=== PATIENT | male | born 1995 | race African-American/Black ===

== ENCOUNTER 2024-06-11 17:22 | Emergency (ER) | payer OTHER ==
--- OUTSIDE RECORDS SUMMARY | 2024-06-11 17:25 | XMS REPORT | Continuity of Care Document ---
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 He has since been lost to f/u. CTA during ED evaluation for anemia last week due to rectal bleeding consistent with mass at rectal cuff/IPAA anastomotic region. Today, reports feeling ok, no fatigue, no abdominal pain, no nausea/vomiting, some appetite changes but no weight loss. Reports bleeding started last week, was significant and bright red which filled the toilet. Denies rectal pain. Denies prior episodes. Colonoscopy: 2018 EGD: 2012 Family Hx CRC: no Family Hx polyps: no PMH: Diabetes:no Cardiac functional status: active Blood thinners: no Allergies Manas has No Known Allergies. Medications Current Outpatient Medications Medication Instructions acetaminophen-codeine (TYLENOL-CODEINE #3) 300-30 mg tablet 1 tablet, Oral, Q4HPRN ferrous sulfate 325 mg, Oral, TID MEALS Family History: Family History Problem Relation Age of Onset Diabetes Maternal Grandfather Diabetes Maternal Grandmother Cancer Maternal Uncle stomach? Social History: Smoking: no Review of Systems Per HPI Physical Exam Vitals: 08/14/23 1304 BP: 116/62 Pulse: 89 Temp: 36.9 ?C (98.4 ?F) SpO2: 100% Physical Exam Vitals signs reviewed. Constitutional: Appearance: Normal appearance. Cardiovascular: Rate and Rhythm: Normal rate. Pulmonary: Effort: Pulmonary effort is normal. Abdominal: General: Abdomen is flat. S/NT/ND Musculoskeletal: Normal range of motion. Skin:General: Skin is warm and dry. Imaging CT ANGIOGRAM ABDOMEN/PELVIS Narrative: EXAM: CT ANGIOGRAM ABDOMEN/PELVIS HISTORY: 27 years-old Male; GI bleed, lower . TECHNIQUE: Multiphasic CT Angiogram was performed from the level of the lung bases through the proximal thighs before and after the uncomplicated administration of intravenous contrast. Coronal and sagittal reconstructions and MIP reformats were obtained. COMPARISON: None FINDINGS: Lung bases: There is no evidence of mass lesion pneumonia or pneumothorax Liver: There is no evidence of masses. There is huge and 80 to perfusion in the liver. There is no evidence of gallstones. Spleen: No evidence of masses. Kidneys: No evidence of masses or hydronephrosis. Adrenals: No evidence of masses. Pancreas: There is no evidence of masses. Vasculature: There is no evidence of aortic dissection or aneurysm formation. Bowel: Postsurgical changes are noted in the region of the rectum, there is soft tissue mass may be related to neoplasm, intussusception cannot be excluded further evaluation with direct visualization is recommended. This is best seen on series #8 image 111/164. There is no evidence of GI bleeding. Pelvis: There is thickening of the urinary bladder wall, cystitis cannot be excluded. Impression: IMPRESSION: No evidence of GI bleeding. Mass lesion in the region of the rectum and the surgical anastomosis, differential includes tumor/neoplasm, intussusception cannot be excluded direct visualization is recommended Pathology: 2012: ILEUM, COLON AND RECTUM, TOTAL COLECTOMY: - INNUMERABLE TUBULAR ADENOMAS - BENIGN COLONIC MUCOSA WITH SUBMUCOSAL LYMPHOID HYPERPLASIA AND TRANSMURAL CHRONIC INFLAMMATION - NO MALIGNANCY IDENTIFIED - BENIGN ILEAL MUCOSA WITH SUBMUCOSAL LYMPHOID HYPERPLASIA - 111 BENIGN REACTIVE LYMPH NODES - MARGINS ARE FREE OF DYSPLASIA 2018: A. ILEUM, PROXIMAL J POUCH, BIOPSY: - REACTIVE INTESTINAL MUCOSA WITH MIXED INFLAMMATION AND GRANULATION TISSUE CONSISTENT WITH POUCHITIS - NO MALIGNANCY IDENTIFIED B. ILEUM, MID POUCH, BIOPSY: - REACTIVE SMALL INTESTINAL MUCOSA WITH MIXED INFLAMMATION - NO MALIGNANCY IDENTIFIED C. SMALL INTESTINE, DISTAL J POUCH, POLYP EXCISION: - COLONIC POLYP WITH DILATED GLANDS WITH GRANULATION TISSUE - NO ADENOMATOUS CHANGES IDENTIFIED - SEE COMMENT Assessment/Plan Michelle Noel is a 27 year old male who presented for rectal bleeding and rectal cuff mass like lesion on imaging with a significant h/o FAP s/p proctocolectomy with IPAA and post op cuffitis. Plan: - schedule urgent flex sig for next Sunday- fleet recommended - RTC post evaluation to determine surgical needs - will plug in with GI for establishment of frequent EGD/colonoscopy surveillance for FAP I spent 55 minutes of time, independent of resident or medical student time spent during the entirety of this appointment, dedicated to: PreCharting (eg, review of tests, notes, etc.), Performing a medically appropriate examination and/or evaluation, Counseling and educating the patient/family/caregiver, Ordering medications, tests, or procedures, and Documenting clinical information in the electronic or other health record. Eva Merino MD 08/14/2023 11:14 AM Colon and Rectal Surgery [facility]
[2024-06-11 18:34] LABS: SARS-CoV-2 Antigen CONTROL BLUE LINE VIS/BG OK; SARS-CoV-2 Antigen Rapid Res Negative (Negative)
--- NOTE | 2024-06-11 18:50 | ER ---
Nurse's Notes [facility] Name: Mane Oneal Age: 28 yrs Sex: Male : 1995 Arrival Date: 06/11/2024 Time: 17:22 Bed DX4 Private MD: Diagnosis: Acute upper respiratory infection, unspecified Presentation: 06/11 17:49 Chief complaint: Patient states: Headache, chills, cough onset sunday. Coronavirus cm10 screen: Client denies travel out of the [place] in the last 14 days. Ebola Screen: Patient denies travel to an Ebola-affected area in the 21 days before illness onset. Initial Sepsis Screen: Does the patient meet any 2 criteria? HR > 90 bpm. Does the patient have a suspected source of infection? No. Patient's initial sepsis screen is negative. Risk Assessment: Do you want to hurt yourself or someone else? Patient reports no desire to harm self or others. Onset of symptoms was June 11, 2024. 17:49 Method Of Arrival: Ambulatory cm10 17:49 Acuity: ADWOA 4 cm10 Triage Assessment: 17:51 General: Appears in no apparent distress. comfortable, Behavior is calm, cooperative. cm10 Neuro: No deficits noted. Level of Consciousness is awake, alert, obeys commands, Oriented to person, place, time, situation, Appropriate for age. Respiratory: No deficits noted. Reports cough that is Airway is patent Respiratory effort is even, unlabored, Respiratory pattern is regular, symmetrical. Historical: - Allergies: 17:50 No Known Allergies; cm10 - PMHx: 17:50 Colon Cancer; cm10 - PSHx: 17:50 Colectomy; cm10 - Immunization history:: Adult Immunizations up to date. - Infectious Disease History:: Denies. - Social history:: Smoking status: Patient denies any tobacco usage or history of. Vital Signs: 17:49 BP 126 / 83; Pulse 96; Resp 15; Temp 98.4(TE); Pulse Ox 100% ; Weight 70.31 kg; Height cm10 5 ft. 9 in. ; Pain 6/10; 17:49 Body Mass Index 22.89 (70.31 kg, 175.26 cm) cm10 17:49 Pain Scale: Adult cm10 ED Course: 17:24 Patient arrived in ED. jj6 17:25 Yuli Benitez FNP-C [facility] kb 17:25 Thierno Nayak MD is Attending Physician. kb 17:50 Triage completed. cm10 17:51 Arm band placed on right wrist. Patient placed in waiting room. cm10 17:53 Strep Sent. cm10 17:53 SARS RAPID Sent. cm10 17:53 Flu Sent. cm10 17:54 COVID swab sent to lab. Flu and/or RSV swab sent to lab. Strep swab sent to lab. cm10 19:03 Cathryn Luciano, RN is Primary Nurse. iw Administered Medications: No medications were administered Outcome: 18:50 Discharge ordered by . kb 19:03 Discharged to home ambulatory, iw 19:03 Condition: good 19:03 Discharge instructions given to patient, Instructed on discharge instructions, follow up and referral plans. Demonstrated understanding of instructions, follow-up care, 19:03 Patient left the ED. iw Signatures: Yuli Benitez FNP-C FNP-Cathryn Patel, RN RN iw Margo Carrion jj6 Tiffany Black RN RN cm10
--- NOTE | 2024-06-11 18:50 | EDPHYS ---
Physician Documentation [facility] Name: Mane Oneal Age: 28 yrs Sex: Male : 1995 Arrival Date: 06/11/2024 Time: 17:22 Bed DX4 Private MD: ED Physician Thierno Nayak HPI: 06/11 17:48 This 28 yrs old Black Male presents to ER via Unassigned with complaints of Flu kb Symptoms. 17:48 Pt is a 28 year old male who presents for headache, cough, chills, fever, bodyaches, kb sore throat that started 3 days ago. Denies vomiting. . Historical: - Allergies: 17:50 No Known Allergies; cm10 - PMHx: 17:50 Colon Cancer; cm10 - PSHx: 17:50 Colectomy; cm10 - Immunization history:: Adult Immunizations up to date. - Infectious Disease History:: Denies. - Social history:: Smoking status: Patient denies any tobacco usage or history of. ROS: 17:48 Constitutional: As per HPI kb Exam: 17:48 Constitutional: This is a well developed, well nourished patient who is awake, alert, kb and in no acute distress. Head/Face: Normocephalic, atraumatic. ENT: Moist Mucous membranes Cardiovascular: Regular rate Respiratory: Respirations even and unlabored. No increased work of breathing. Talking in full sentences Skin: Warm, dry with normal turgor. Normal color. MS/ Extremity: Pulses equal, no cyanosis. Neurovascular intact. Full, normal range of motion. Neuro: Awake and alert, GCS 15, oriented to person, place, time, and situation. Vital Signs: 17:49 BP 126 / 83; Pulse 96; Resp 15; Temp 98.4(TE); Pulse Ox 100% ; Weight 70.31 kg; Height cm10 5 ft. 9 in. ; Pain 6/10; 17:49 Body Mass Index 22.89 (70.31 kg, 175.26 cm) cm10 17:49 Pain Scale: Adult cm10 MDM: 17:25 Medical Screening Exam initiated kb 17:50 Differential diagnosis: flu, covid, strep, uri. Data reviewed: vital signs, nurses kb notes. 18:49 Test considered but Not performed: X-ray: CXR considered but lungs clear bilaterally. kb Historians other than the Patient: Spouse/Significant Other: significant other. Counseling: I had a detailed discussion with the patient and/or guardian regarding the historical points, exam findings, and any diagnostic results supporting the discharge/admit diagnosis, lab results, the need for outpatient follow up, a family practitioner, to return to the emergency department if symptoms worsen or persist or if there are any questions or concerns that arise at home. 06/11 17:49 Order name: Flu; Complete Time: 18:38 cm10 06/11 17:49 Order name: SARS RAPID; Complete Time: 18:38 cm10 06/11 17:49 Order name: Strep cm10 06/11 18:37 Order name: Throat Culture EDMS Administered Medications: No medications were administered Disposition Summary: 06/11/24 18:50 Discharge Ordered Notes: Location: Home kb Condition: Stable kb Diagnosis - Acute upper respiratory infection, unspecified kb Followup: kb - With: Emergency Department - When: As needed - Reason: Worsening of condition Followup: kb - With: Private Physician - When: 2 - 3 days - Reason: Recheck today's complaints, Continuance of care, Re-evaluation by your physician Discharge Instructions: - Discharge Summary Sheet kb - Upper Respiratory Infection, Adult, [id number] kb - Viral Respiratory Infection, [id number] kb Forms: - Work release form kb - Medication Reconciliation Form kb - Antibiotic Education kb - Prescription Opioid Use kb - Patient Portal Instructions kb - Leadership Thank You Letter kb Addendum: 06/13/2024 23:22 Co-signature as Attending Physician, Thierno Nayak MD I agree with the assessment and c low plan of care. Signatures: Dispatcher [employer] Yuli Prasad, AVICULTURIST-C AVICULTURIST-Thierno Becerra MD MD cha Martinez, Clarissa, RN RN cm10
[2024-06-11 19:14] VITALS: BP 126/83; TEMP 98.4; O2SAT 100
== END 2024-06-11 19:03 | disposition home or self-care (01) ==
LOC: ER 17:22
DX: J06.9 Acute upper respiratory infection, unspecified (principal); Z11.52 Encounter for screening for COVID-19
CPT/HCPCS: 36415; 87070; 87081; 87804; 87811; 99283

== ENCOUNTER 2024-06-12 18:50 | Emergency (ER) | payer OTHER ==
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
[2024-06-12] MEDS ORDERED: IBUPROFEN 200 MG TAB PO ONE (19:22)
[2024-06-12 19:46] LABS: SARS-CoV-2 Antigen CONTROL BLUE LINE VIS/BG OK; SARS-CoV-2 Antigen Rapid Res Negative (Negative)
--- NOTE | 2024-06-12 20:09 | RAD REPORT ---
EXAMINATION: TWO VIEW CHEST XR CLINICAL INDICATION: Male, 28 years old. [facility] MAIN Cough;Fever Bed Name: 29 TECHNIQUE: 2 view radiographs of the chest were performed. COMPARISON: No prior exam. FINDINGS: The lungs are well inflated and clear. No pneumothorax or sizable effusion. The heart is normal in si ze. Mediastinal contours are unremarkable. IMPRESSION: No acute or significant abnormalities.
--- NOTE | 2024-06-12 20:24 | ER ---
Nurse's Notes [facility] Name: Mane Oneal Age: 28 yrs Sex: Male : 1995 Arrival Date: 06/12/2024 Time: 18:50 Bed IW6 Private MD: Diagnosis: Influenza due to identified novel influenza A virus Presentation: 06/12 19:10 Chief complaint: Patient states: seen here yesterday for cough, congestion, malaise, me1 fever (temp 107 at home). Feels worse today. Coronavirus screen: Vaccine status: Patient reports being unvaccinated. Ebola Screen: No symptoms or risks identified at this time. Initial Sepsis Screen: Does the patient meet any 2 criteria? No. Patient's initial sepsis screen is negative. Does the patient have a suspected source of infection?. Risk Assessment: Do you want to hurt yourself or someone else? Patient reports no desire to harm self or others. Onset of symptoms was June 11, 2024. 19:10 Method Of Arrival: Ambulatory [facility] 19:10 Acuity: ADWOA 4 me1 Triage Assessment: 20:50 General: Appears ill, Behavior is calm, cooperative, appropriate for age. me1 Historical: - Allergies: 19:14 No Known Allergies; me1 - PMHx: 19:14 colon cancer; me1 - PSHx: 19:14 Colectomy; me1 - Immunization history:: Adult Immunizations up to date. - Infectious Disease History:: Denies. - Social history:: Smoking status: Patient denies any tobacco usage or history of. Screenin:45 [facility] ED Fall Risk Assessment (Adult) History of falling in the last 3 months, me1 including since admission No falls in past 3 months (0 pts) Confusion or Disorientation No (0 pts) Intoxicated or Sedated No (0 pts) Impaired Gait No (0 pts) Mobility Assist Device Used No (0 pt) Altered Elimination No (0 pt) Score/Fall Risk Level 0 - 2 = Low Risk Maintained a safe environment, Provided non-skid footwear, Hourly rounding (assess needs \T\ fall precautionary measures) done. Abuse screen: Denies threats or abuse. Nutritional screening: No deficits noted. Tuberculosis screening: No symptoms or risk factors identified. Assessment: 20:45 General: Reports fever for 1-2 days, feeling ill for seen here yesterday for cough, me1 congestion, malaise, fever (temp 107 at home). Feels worse today. Pain: Complains of pain in generalized Pain does not radiate. Pain currently is 7 out of 10 on a pain scale. Quality of pain is described as aching, Pain began gradually, 2-3 days ago. Is continuous. Neuro: Level of Consciousness is awake, alert, obeys commands, Oriented to person, place, time, situation, Appropriate for age. Cardiovascular: Patient's skin is warm and dry. Respiratory: Reports cough that is persistent pain with cough Airway is patent Respiratory effort is even, unlabored, Respiratory pattern is regular, symmetrical. GI: No signs and/or symptoms were reported involving the gastrointestinal system. : No signs and/or symptoms were reported regarding the genitourinary system. EENT: Reports nasal congestion. Derm: Skin is intact, is healthy with good turgor, Skin is pink, warm \T\ dry. Musculoskeletal: No signs and/or symptoms reported regarding the musculoskeletal system. Vital Signs: 19:10 BP 134 / 77; Pulse 97; Resp 18; Temp 99.8; Pulse Ox 99% ; Weight 70.31 kg; Height 5 ft. me1 9 in. ; Pain 5/10; 20:49 BP 131 / 81; Pulse 91; Resp 17; Temp 98.3; Pulse Ox 99% ; me1 19:10 Body Mass Index 22.89 (70.31 kg, 175.26 cm) me1 19:10 Pain Scale: Adult me1 ED Course: 18:54 Patient arrived in ED. im 18:58 Jos Samayoa DO is Attending Physician. ms3 19:14 Triage completed. me1 19:14 Arm band placed on Patient placed in waiting room. me1 19:24 SARS RAPID Sent. me1 19:24 Flu Sent. me1 19:24 COVID swab sent to lab. Flu and/or RSV swab sent to lab. me1 19:53 Chest Pa And Lat (2 Views) XRAY In Process Unspecified. EDMS 20:23 Braulio Armstrong DO is Referral Physician. ms3 20:45 Debo Sutherland, RN is Primary Nurse. me1 20:45 Patient has correct armband on for positive identification. Provided Education on: POC. me1 Verbalized understanding.. 20:45 No provider procedures requiring assistance completed. Patient did not have IV access me1 during this emergency room visit. Administered Medications: 19:28 Drug: Ibuprofen PO 600 mg PO once Route: PO; me1 20:50 Follow up: Response: No adverse reaction; Temperature is decreased me1 Medication: 20:45 VIS not applicable for this client. me1 Outcome: 20:23 Discharge ordered by MD. ms3 20:50 Discharged to home ambulatory, me1 20:50 Condition: stable 20:50 Discharge instructions given to patient, family, Instructed on discharge instructions, follow up and referral plans. medication usage, Demonstrated understanding of instructions, follow-up care, medications, Prescriptions given X 2, 20:50 Patient left the ED. me1 Signatures: Dispatcher [employer] EDMS Jos Samayoa DO DO ms3 Paula Bess Michelle, RN RN me1 Corrections: (The following items were deleted from the chart) 20:45 19:10 Chief complaint: Patient states: seen here yesterday for cough, congestion, me1 malaise, fever (temp 107 at home). Feels worse today me1
--- NOTE | 2024-06-12 20:24 | EDPHYS ---
Physician Documentation [facility] Name: Mane Oneal Age: 28 yrs Sex: Male : 1995 Arrival Date: 06/12/2024 Time: 18:50 Bed IW6 Private MD: ED Physician Jos Samayoa HPI: 06/12 20:39 This 28 yrs old Black Male presents to ER via Ambulatory with complaints of Flu ms3 Symptoms. 20:39 28-year-old male with no past medical history presents emergency department for cough, ms3 runny nose, fever, chills. Patient states he was seen emergency department yesterday where COVID and flu testing were negative. Patient states he took his temperature at home and found it to be elevated. Patient has not taken Tylenol or ibuprofen today. Patient notes he has been staying hydrated.. Historical: - Allergies: 19:14 No Known Allergies; me1 - PMHx: 19:14 colon cancer; me1 - PSHx: 19:14 Colectomy; me1 - Immunization history:: Adult Immunizations up to date. - Infectious Disease History:: Denies. - Social history:: Smoking status: Patient denies any tobacco usage or history of. ROS: 20:39 Cardiovascular: Negative for chest pain, and palpitations. ms3 20:39 Abdomen/GI: Negative for abdominal pain, nausea, vomiting, diarrhea, and constipation, MS/Extremity: Negative for injury and deformity, Skin: Negative for injury, rash, and discoloration, 20:39 Constitutional: Positive for body aches, chills, fever, 20:39 Respiratory: Positive for cough, Exam: 20:39 Constitutional: This is a well developed, well nourished patient who is awake, alert, ms3 and in no acute distress. Cardiovascular: Regular rate and rhythm with a normal S1 and S2. No gallops, murmurs, or rubs. Normal PMI, no JVD. No pulse deficits. Respiratory: Lungs have equal breath sounds bilaterally, clear to auscultation and percussion. No rales, rhonchi or wheezes noted. No increased work of breathing, no retractions or nasal flaring. Abdomen/GI: Soft, non-tender, with normal bowel sounds. No distension or tympany. No guarding or rebound. No evidence of tenderness throughout. Skin: Warm, dry with normal turgor. Normal color with no rashes, no lesions, and no evidence of cellulitis. 20:39 ENT: Nose: nasal drainage, that is moderate, and is seen coming from both nares, that is clear, Vital Signs: 19:10 BP 134 / 77; Pulse 97; Resp 18; Temp 99.8; Pulse Ox 99% ; Weight 70.31 kg; Height 5 ft. me1 9 in. ; Pain 5/10; 20:49 BP 131 / 81; Pulse 91; Resp 17; Temp 98.3; Pulse Ox 99% ; me1 19:10 Body Mass Index 22.89 (70.31 kg, 175.26 cm) me1 19:10 Pain Scale: Adult me1 MDM: 19:18 Medical Screening Exam initiated ms3 20:39 Differential Diagnosis: Influenza Upper Respiratory Infection Viral Syndrome Pneumonia. ms3 Data reviewed: vital signs, nurses notes, lab test result(s), radiologic studies, and as a result, I will discharge patient. I considered the following discharge prescriptions or medication management in the emergency department See prescriptions. Counseling: I had a detailed discussion with the patient and/or guardian regarding the historical points, exam findings, and any diagnostic results supporting the discharge/admit diagnosis, lab results, radiology results, the need for outpatient follow up, to return to the emergency department if symptoms worsen or persist or if there are any questions or concerns that arise at home. Special discussion: I discussed with the patient/guardian in detail that at this point there is no indication for admission to the hospital. It is understood, however, that if the symptoms persist or worsen the patient needs to return immediately for re-evaluation. ED course: Discussed negative chest x-ray, positive flu a results with the patient. Patient to follow-up Dr. Armstrong in 2 to 3 days. Patient understands and agrees with plan. All questions were answered. Patient given prescription for ibuprofen and Tessalon Perles. Discussed with patient he is currently outside the 72-hour treatment window. On reevaluation patient is alert and oriented x 4, no apparent distress, nontoxic-appearing, speaking full sentences, ambulatory in the emergency department.. 06/12 19:18 Order name: Flu; Complete Time: 20:07 ms3 06/12 19:18 Order name: SARS RAPID; Complete Time: 20:07 ms3 06/12 19:18 Order name: Chest Pa And Lat (2 Views) XRAY; Complete Time: 20:12 ms3 Administered Medications: 19:28 Drug: Ibuprofen PO 600 mg PO once Route: PO; me1 20:50 Follow up: Response: No adverse reaction; Temperature is decreased me1 Disposition Summary: 06/12/24 20:23 Discharge Ordered Notes: Location: Home ms3 Condition: Stable ms3 Diagnosis - Influenza due to identified novel influenza A virus ms3 Followup: ms3 - With: Braulio Armstrong DO - When: 2 - 3 days - Reason: Recheck today's complaints Discharge Instructions: - Discharge Summary Sheet ms3 Forms: - Medication Reconciliation Form ms3 - Antibiotic Education ms3 - Prescription Opioid Use ms3 - Patient Portal Instructions ms3 - Leadership Thank You Letter ms3 Prescriptions: - Ibuprofen 600 mg Oral Tablet - take 1 tablet ORAL route every 6 hours As needed take with food; 30 tablet; ms3 Refills: 0, Product Selection Permitted - Tessalon Perles 100 mg Oral Capsule - take 1 capsule ORAL route every 8 hours As needed; 15 capsule; Refills: 0, ms3 Product Selection Permitted Signatures: Dispatcher [employer] Jos Armstrong DO DO ms3 Debo Sutherland, RN RN me1
[2024-06-12 20:59] VITALS: O2SAT 99
[2024-06-12 21:00] VITALS: BP 131/81; TEMP 98.3
== END 2024-06-12 20:50 | disposition home or self-care (01) ==
LOC: ER 18:50
DX: J10.1 Influenza due to other identified influenza virus with other respiratory manifestations (principal); Z11.52 Encounter for screening for COVID-19
CPT/HCPCS: 36415; 71046; 87804; 87811; 99284

== ENCOUNTER 2024-07-29 20:48 | Emergency (ER) | payer OTHER ==
--- OUTSIDE RECORDS SUMMARY | 2024-07-29 20:52 | XMS REPORT | Continuity of Care Document ---
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 following bariumadministered through the rectum demonstrate free flow of barium retrograde tothe ileostomy. No strictures or other mucosal abnormalities are present.[facility] BOWEL IMAGE--MECKEL' S DIVERTIC 2011-08 16:53:0 0 BOWEL IMAGE--MECKEL'S DIVERTIC*.*.*.*.*.*.*.*.*.*.*. *.*.*FINAL*.*.*.*.*.*.*.*.*.*. *.*.*.*.*INDICATION: Severe anemia, evaluate for Meckel's diverticulum. MECKEL'S SCAN: After administering [id number] 10 mCi intravenously, serial scintiphotos of the abdomen were obtained. ?These images demonstrate a small focus of increased uptake in the right lower abdomen that parallels the activity in the stomach. ?This activity does not increase over time as normally expected with a Meckel's but evaluation on the more delayed images is limited due to overlying intestinal activity. These findings raise the concern for a Meckel's diverticulum. IMPRESSION: Small area of increased uptake in the right lower quadrant, as described above, ?concerning for Meckel's diverticulum.[facility] History and Physical Notes Date/Time Note Provider [...] and Rectal Surgery Source Note - Eva Mernio MD - 08/14/2023 1:00 PM CDT COLORECTAL [...] 08/14/2023 11:14 AM Colon and Rectal Surgery [facility] - Health Notes Date/Time Note Provider Source 2023-11-19 16:01:07 Mr. Noel did not call me back and I was unable again to reach him by phone. Instead I will mail him a letter detailing the results and recommending a follow up visit. Copy of the letter is below: Dear Mr. Noel, I'm writing since we have not been able to reach you by phone with the results of your genetic testing. Please contact me at [phone] if you have any questions or concerns, to discuss the results further, or to schedule a follow up appointment. You may also contact our main genetics office at [phone] to schedule a follow up appointment. As you know, you were originally seen for genetic counseling due to your personal history of colon polyps. After our initial meeting, you underwent hereditary colorectal cancer and polyposis testing performed by [facility] which examined 20 genes associated with an increased risk for colorectal cancer and polyposis. 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 This result is consistent with Juvenile polyposis syndrome (JPS) and being at risk for hereditary hemorrhagic telangiectasia (HHT). This letter will summarize the results of your genetic testing and our recommendations. Genes are the set of instructions that tell all of the cells in our bodies what to do. A pathogenic variant, also referred to as a genetic mutation, is a change in a person's DNA that causes the gene to stop working. The SMAD4 gene works to protect us from developing cancer. Having a pathogenic variant in the SMAD4 gene prevents the gene from functioning the way it should, and is associated with juvenile polyposis syndrome (JPS) and hereditary hemorrhagic telangiectasia (HHT). A person with a SMAD4 is at an increased risk to develop certain types of cancer and other types of health problems. Juvenile Polyposis Syndrome: Cancer Risks Juvenile polyposis syndrome is associated with the development of multiple juvenile polyps. Juvenile polyps are a type of polyp. These polyps can develop in the colon or rectum primarily, but also in the stomach and small intestine. The term "juvenile" refers to the type of polyp, not the age on onset, although individuals with this condition typically develop polyps before age 20. Although these polyps are typically benign, they can be associated with bleeding and anemia, and increased risk to develop cancer. Cancer Risk Reduction and Screening Recommendations The National Comprehensive Cancer Network (NCCN) recommends the following for adult individuals who carry a SMAD4 pathogenic variant: Colonoscopy every 1-3 years, beginning at age 18, if not earlier. Repeat interval is dependent on results of colonoscopy. Upper endoscopy every 1-3 years, beginning at age 18, if not earlier. Repeat interval is dependent on results of endoscopy. Any new signs or symptoms of gastrointestinal disease should receive workup in a timely manner. HHT screening as documented below In regards to your screening and management, this can be facilitated by your colorectal surgeon. We would also discuss this in more detail at a follow up visit. Hereditary Hemorrhagic Telangiectasia (HHT): Individuals with a SMAD4 pathogenic variant are at in increased risk to develop hereditary hemorrhagic telangiectasia (HHT). The main feature of HTT are arteriovenous malformations (AVM), which is a type of malformation with the blood vessels where veins and arteries aren't formed properly. AVMs will mostly appear in the lungs, brain, and liver. AVMs can spontaneously bleed and cause other problems such as cardiac disease. These AVMs can be serious and, in some cases, life-threatening. In addition, individuals can have small AVMs, often called telangiectasias that can appear on the lips, tongue, buccal mucosa, face, chest, and fingers and are also prone to bleeding. Frequent nosebleeds are also a very common complaint in the condition. Typically, we recommend regular monitoring for the features associated with HHT. Screening usually consists of regular imaging, physical exam, and possibly other evaluations. I recommend a follow up visit to discuss this in more detail. As part of that visit you would meet with our medical genetics group who would then facilitate screening. Screening for AVMs typically includes the following: Physical exam for telangiectasias at time of diagnosis Screening for anemia and iron deficiency Pulmonary AVMs: transthoracic contrast echocardiography or chest radiograph with pulse oximetry at time of diagnosis Hepatic (Liver) AVMs: abdominal MRI, ultrasound, or CT with contrast. Cerebral AVMs: Head MRI with and without contrast Inheritance: SMAD4 pathogenic variants are inherited in an autosomal dominant manner. As you may remember, we all have two copies of every gene in our body, one that we inherit from our mother and one that we inherit from our father. When an individual has a pathogenic variant in SMAD4 there is a 50% chance they could pass it on to their children, and a 50% chance they could pass on the copy of the gene that is working properly. Both males and females can be carriers of a SMAD4 pathogenic variant. Therefore, both sons and daughters of a parent who have a SMAD4 pathogenic variant have a 50% chance to have the same pathogenic variant. In your family, your future child and parents have a 50% chance to have the same pathogenic variant identified in you. If the variant was inherited from either of your parents, then other siblings may be at risk as well. As we do not know if this SMAD4 pathogenic variant was inherited from your mother or father, relatives on both sides of the family would benefit from genetic testing for the SMAD4 pathogenic variant. If they are found to be positive for the SMAD4 variant, then we could predict their lifetime risk for SMAD4-associated cancers and HHT, and could offer them different screenings or preventative surgeries based on this cancer risk. I hope that this letter clearly summarized the results. Please contact me at [phone] if you have any questions or concerns, to discuss the results further, or to schedule a follow up appointment. You may also contact our main genetics office at [phone] to schedule a follow up appointment. Sincerely, Harmeet Rivera [facility], [facility] Certified Genetic Counselor Division of Medical Genetics [facility] P: [phone] F: [phone] [email or web address] Harmeet Rivera [facility] 2023-11-07 14:13:58 I never received a call back from Mr. Noel, and so I tried again to reach him, but he did not answer so I left a voicemail with a call back number. I called the other numbers listed in his chart and reached his mother Sandra and she stated she would let him know we were trying to reach him. I will also determine other ways to notify him. [facility] 2023-11-01 14:38:04 I again called Mr. Noel, and was able to leave a message with the woman who answered his phone to call me back and with my contact information. I will try contacting him again at a future time. T [facility] 2023-10-31 14:41:52 I again called Mr. Noel with the results of his genetic testing, but there was no answer so I left a voicemail with a call back number and will try contacting him again at a future time. T [facility] 2023-10-30 17:22:50 I called Mr. Noel with the results of his genetic testing, but there was no answer so I left a voicemail with a call back number and will try contacting him again at a future time. T [facility] 2023-10-29 12:36:42 [facility] [employer] lab results scanned to chart. Michelle Noyola RN [facility] 2023-08-15 10:40:32 Patient contacted for pre op phone call. Patient given procedural prep instructions, NPO status/timing for procedure, medication instructions,denies taking blood thinners.Patient verbalized understanding of instructions. Discussed with patient they will need a responsible adult, 18 years old or older, to provide transportation on the day of procedure. Patient also informed that they will be contacted the day before their procedure with arrival time. Pre op call complete. Pt states has instructions for flexible sigmoidoscopy from clinic. Miryam Almodovar RN [facility] 2023-08-15 10:37:01 Preop call attempted. Patient was unavailable. Voice message left on patients voicemail. Patient instructed to return call and confirm appointment. [facility] 2023-08-13 11:51:12 Pt given printed and verbal discharge instructions regarding GI bleeding, encouraged hydration, NO Prescriptions provided Discussed ibuprofen and to take with food to avoid GI distress. Pt verbalized understanding of instructions, pt awake alert oriented, resp reg unlabored, skin w/d, color appropriate for race, moves all ext well,pt encouraged to follow up with pcp and or Dr. Merino (ColoRectal Surgery) Advised to seek medical attention for new/prolonged/worsening of symptoms, Symptoms Dizziness, Chest Pain, shortness of Breath No adverse reaction to meds given in ER noted upon discharge PIV d'cd, dressing to site, catheter in tact. Awake, alert oriented, resp reg unlabored, skin w/d, pt leaving amb with steady gait, in no apparent distress, Marcella Crouch RN [facility] 2023-08-13 08:47:58 Pt c/o rectal bleeding since Sunday morning. Reports blood is dark red. Last BM this morning. Denies pain in triage. Liudmila Dumont RN [facility] 2022-10-31 15:25:55 Formatting of this n ote might be different from the original. Please inform patient. He must be seen for any clearance letter to be given. Was last seen early 2018 and was to follow up yearly. WARREN Bennett APRN-C, CPNP-AC Pediatric Surgery T [facility] 2022-10-31 13:51:42 Formatting of this n ote might be different from the original. Michelle Noel is a 26 year old male. Client is calling and stated Dr Ramos did surgery on him several years ago. The [employer] is asking for a clearance letter so the client can join. Please mail the letter to the address on file. Aysha Ring [facility]
[2024-07-29 21:34] LABS: Influenza A Ag Negative; Influenza B Ag Negative; SARS-CoV-2 Antigen Rapid Res Negative (Negative)
--- NOTE | 2024-07-29 21:37 | ER ---
Nurse's Notes [facility] Name: Mane Oneal Age: 28 yrs Sex: Male : 1995 Arrival Date: 07/29/2024 Time: 20:48 Bed IW3 Private MD: Diagnosis: Headache Presentation: 07/29 21:03 Chief complaint: Patient states: tested positive for flu or covid last week, he cant me1 remember which. Continues to have n/v at times but needs a test so he can go back to work. Coronavirus screen: Vaccine status: Patient reports being unvaccinated. Ebola Screen: No symptoms or risks identified at this time. Initial Sepsis Screen: Does the patient meet any 2 criteria? No. Patient's initial sepsis screen is negative. Does the patient have a suspected source of infection? No. Patient's initial sepsis screen is negative. Risk Assessment: Do you want to hurt yourself or someone else?. Onset of symptoms is unknown. 21:03 Method Of Arrival: Ambulatory [facility] 21:03 Acuity: ADWOA 4 me1 Triage Assessment: 22:07 General: Appears in no apparent distress. Behavior is calm, cooperative, appropriate me1 for age. Pain: Denies pain. EENT: No signs and/or symptoms were reported regarding the EENT system. Neuro: Level of Consciousness is awake, alert, obeys commands, Oriented to person, place, time, situation, Appropriate for age. Cardiovascular: Patient's skin is warm and dry. Respiratory: Airway is patent Respiratory effort is even, unlabored, Respiratory pattern is regular, symmetrical. GI: Reports nausea, since at times. : No signs and/or symptoms were reported regarding the genitourinary system. Derm: Skin is intact, is healthy with good turgor, Skin is pink, warm \T\ dry. Musculoskeletal: No signs and/or symptoms reported regarding the musculoskeletal system. Historical: - Allergies: 21:06 No Known Allergies; me1 - PMHx: 21:06 colon cancer; me1 - PSHx: 21:06 Colectomy; me1 - Immunization history:: Adult Immunizations up to date. - Infectious Disease History:: Denies. - Social history:: Smoking status: Patient denies any tobacco usage or history of. Screenin:08 [facility] ED Fall Risk Assessment (Adult) History of falling in the last 3 months, me1 including since admission No falls in past 3 months (0 pts) Confusion or Disorientation No (0 pts) Intoxicated or Sedated No (0 pts) Impaired Gait No (0 pts) Mobility Assist Device Used No (0 pt) Altered Elimination No (0 pt) Score/Fall Risk Level 0 - 2 = Low Risk Maintained a safe environment, Provided non-skid footwear, Hourly rounding (assess needs \T\ fall precautionary measures) done. Abuse screen: Denies threats or abuse. Nutritional screening: No deficits noted. Tuberculosis screening: No symptoms or risk factors identified. Assessment: 22:08 General: see triage assessment. me1 Vital Signs: 21:03 BP 126 / 77; Pulse 68; Resp 17; Temp 98.6; Pulse Ox 96% ; Weight 72.57 kg; Height 5 ft. me1 9 in. ; Pain 0/10; 21:03 Body Mass Index 23.63 (72.57 kg, 175.26 cm) me1 21:03 Pain Scale: Adult [facility] ED Course: 20:49 Patient arrived in ED. im 20:53 Yuli Benitez [facility]-C [facility] kb 20:53 Tunde Nieto MD is Attending Physician. kb 21:05 Triage completed. me1 21:06 Arm band placed on Patient placed in waiting room. me1 21:06 COVID swab sent to lab. Flu and/or RSV swab sent to lab. me1 22:08 Patient has correct armband on for positive identification. Provided Education on: POC. me1 Verbalized understanding.. 22:08 No provider procedures requiring assistance completed. Patient did not have IV access [facility] during this emergency room visit. Administered Medications: No medications were administered Medication: 22:08 VIS not applicable for this client. me1 Outcome: 21:36 Discharge ordered by . kb 22:08 Discharged to home ambulatory, me1 22:08 Condition: stable 22:08 Discharge instructions given to patient, Instructed on discharge instructions, follow up and referral plans. Demonstrated understanding of instructions, follow-up care, 22:09 Patient left the ED. me1 Signatures: Yuli Benitez FNP-C [employer]ONT DESK TEAM MEMBER-Paula Gatica Debo Sutherland RN RN me1
--- NOTE | 2024-07-29 21:37 | EDPHYS ---
Physician Documentation [facility] Name: Mane Oneal Age: 28 yrs Sex: Male : 1995 Arrival Date: 07/29/2024 Time: 20:48 Bed IW3 Private MD: ED Physician Tunde Nieto HPI: 07/29 21:31 This 28 yrs old Black Male presents to ER via Ambulatory with complaints of Flu test, kb work note. 21:31 Patient is a 28-year-old male who presents for flu and COVID testing so he can return kb to work. States he had cough, congestion, fever chills body aches last week took a home test that tested positive for either flu or COVID, he is not sure which. States he came in today to get a test to see if he can return to work. Reports he still has intermittent nausea slight vomiting and headache.. Historical: - Allergies: 21:06 No Known Allergies; me1 - PMHx: 21:06 colon cancer; me1 - PSHx: 21:06 Colectomy; me1 - Immunization history:: Adult Immunizations up to date. - Infectious Disease History:: Denies. - Social history:: Smoking status: Patient denies any tobacco usage or history of. ROS: 21:31 Constitutional: As per HPI kb Exam: 21:31 Constitutional: This is a well developed, well nourished patient who is awake, alert, kb and in no acute distress. Head/Face: Normocephalic, atraumatic. ENT: Moist Mucous membranes Cardiovascular: Regular rate Respiratory: Respirations even and unlabored. No increased work of breathing. Talking in full sentences Abdomen/GI: Soft, non-tender. No distention Skin: Warm, dry with normal turgor. Normal color. MS/ Extremity: Pulses equal, no cyanosis. Neurovascular intact. Full, normal range of motion. Neuro: Awake and alert, GCS 15, oriented to person, place, time, and situation. Vital Signs: 21:03 BP 126 / 77; Pulse 68; Resp 17; Temp 98.6; Pulse Ox 96% ; Weight 72.57 kg; Height 5 ft. me1 9 in. ; Pain 0/10; 21:03 Body Mass Index 23.63 (72.57 kg, 175.26 cm) me1 21:03 Pain Scale: Adult me1 MDM: 20:53 Medical Screening Exam initiated kb 21:32 Differential diagnosis: flu, covid, uri. Data reviewed: vital signs, nurses notes. kb 21:36 Counseling: I had a detailed discussion with the patient and/or guardian regarding the kb historical points, exam findings, and any diagnostic results supporting the discharge/admit diagnosis, lab results, the need for outpatient follow up, a family practitioner, to return to the emergency department if symptoms worsen or persist or if there are any questions or concerns that arise at home. 07/29 21:04 Order name: COVID-19 Ag + Flu A+B Ag; Complete Time: 21:35 kb Administered Medications: No medications were administered Disposition: 07/30 20:11 Co-signature as Attending Physician, Tunde Nieto MD I agree with the assessment sp4 and plan of care. I reviewed the patient's care provided by the Advanced Practice Provider and agree with the diagnosis and treatment plan. Disposition Summary: 07/29/24 21:36 Discharge Ordered Notes: Location: Home kb Condition: Stable kb Diagnosis - Headache kb Followup: kb - With: Emergency Department - When: As needed - Reason: Worsening of condition Followup: kb - With: Private Physician - When: 2 - 3 days - Reason: Recheck today's complaints, Continuance of care, Re-evaluation by your physician Discharge Instructions: - Discharge Summary Sheet kb - Viral Illness, Adult kb Forms: - Work release form kb - Medication Reconciliation Form kb - Antibiotic Education kb - Prescription Opioid Use kb - Patient Portal Instructions kb - Leadership Thank You Letter kb Signatures: Dispatcher [employer] Yuli Prasad, JANIE KELLEY-Tunde Ramos MD MD sp4 Debo Sutherland, RN RN me1
[2024-07-29 22:13] VITALS: BP 126/77; TEMP 98.6; O2SAT 96
== END 2024-07-29 22:09 | disposition home or self-care (01) ==
LOC: ER 20:48
DX: R51.9 Headache, unspecified (principal); R05.9 Cough, unspecified; Z11.52 Encounter for screening for COVID-19
CPT/HCPCS: 36415; 87428